=== PATIENT | female | born 1980 | race Caucasian/White ===

== ENCOUNTER → 2017-01-12 | Outpatient (CLI) | payer OTHER ==
--- NOTE | ~2017-01-12 | 2DMMODE ---
[facility] [address] [employer] [address] 2 D/M-MODE ECHOCARDIOGRAM Name: TAMIKA DE LEON WAQAS Room #: REG [facility]#: [id number] Admission: 01/12/17 Attend Phys: Rober Mason, Discharge: Date of : 78 Date of Service: 01/12/17 1314 Report #: [id number] THIS REPORT FOR: //name// APPROVED REPORT Study performed: 01/12/2017 10:54:50 EXAM: Comprehensive 2D, Doppler, and color-flow Echocardiogram Patient Location: Out-Patient Status: routine Other Information Study Quality: Good Indications Murmur 2D Dimensions RVDd: 33.89 mm LVEF(%): 72.15 (>50%) IVSd: 8.50 (7-11mm) LVOT Diam: 18.48 (18-24mm) LVDd: 44.16 mm PWd: 7.58 (7-11mm) LVDs: 26.01 (25-40mm) Aortic Root: 27.95 mm Walters's LVEF: 72.15 % Volumes Left Atrial Volume (Systole) Single Plane 4CH: 26.42 mL Single Plane 2CH: 26.61 mL LA ESV Index: 17.00 mL/m2 Aortic Valve AoV Peak Faisal.: 1.67 m/s AO Peak Gr.: 11.12 mmHg LVOT Max P.64 mmHg LVOT Max V: 1.08 m/s BOB Vmax: 1.73 cm2 Mitral Valve E/A Ratio: 1.4 MV Decel. Time: 217.55 ms MV E Max Faisal.: 1.06 m/s MV A Faisal.: 0.76 m/s MV PHT: 63.09 ms IVRT: 78.43 ms [facility] [employer] [address] [place] [address] 2 D/M-MODE ECHOCARDIOGRAM Name: TAMIKA DE LEON Room #: [facility].#: [id number] Admission: 01/12/17 Attend Phys: Rober Mason, Discharge: Date of : 78 Date of Service: 01/12/17 1314 Report #: [id number] Pulmonary Valve PV Peak Faisal.: 1.35 m/s PV Peak Gr.: 7.32 mmHg Pulmonary Vein P Vein S: 0.72 m/s P Vein A: 0.31 m/s P Vein D: 0.81 m/s P Vein A Dur.: 115.3 msec P Vein S/D Ratio: 0.89 Tricuspid Valve TR Peak Faisal.: 2.54 m/s RAP Estimate: 5.00 mmHg TR Peak Gr.: 25.81 mmHg PA Pressure: 31.00 mmHg Left Ventricle The left ventricle is normal size. There is normal LV segmental wall motion. There is normal left ventricular wall thickness. The left ventricular systolic function is normal. The left ventricular ejection fraction is within the normal range. LVEF is 60-65%. The left ventricular diastolic function is normal. Right Ventricle The right ventricle is normal size. The right ventricular systolic function is normal. Atria The left atrium size is normal. The right atrium size is normal. Aortic Valve The aortic valve is normal in structure. No aortic regurgitation is present. There is no aortic valvular stenosis. Mitral Valve The mitral valve is normal in structure. Trace mitral regurgitation. No evidence of mitral valve stenosis. Tricuspid Valve The tricuspid valve is normal in structure. There is trace tricuspid regurgitation. The right atrial pressure is estimated at 5 mmHg. There is mild pulmonary hypertension with an estimated PAP of 31 mmHg. Pulmonic Valve The pulmonary valve is normal in structure. There is no pulmonic valvular regurgitation. [facility] [address] [place] [address] 2 D/M-MODE ECHOCARDIOGRAM Name: TAMIKA DE LEON WAQAS [id number] Admission: 01/12/17 Attend Phys: Rober Mason, Discharge: Date of : 78 Date of Service: 01/12/17 1314 Report #: [id number] Great Vessels The aortic root is normal in size. IVC is normal in size and collapses >50% with inspiration. Pericardium There is no pericardial effusion. <Conclusion> The left ventricle is normal size. LVEF is 60-65%. The aortic valve is normal in structure. The mitral valve is normal in structure. Trace mitral regurgitation. The tricuspid valve is normal in structure. There is trace tricuspid regurgitation. The right atrial pressure is estimated at 5 mmHg. There is mild pulmonary hypertension with an estimated PAP of 31 mmHg. The pulmonary valve is normal in structure. <ELECTRONICALLY SIGNED> By: Gunner Ramirez MD 01/12/17 1314 1314 1314 Gunner Ramirez MD /INF
== END ==
LOC: CV 09:55
DX: I73.9 Peripheral vascular disease, unspecified (principal); R01.1 Cardiac murmur, unspecified